=== PATIENT | male | born 1990 | race Caucasian/White ===

== ENCOUNTER 2023-01-07 15:13 | Outpatient (CLI) | payer OTHER | END 2023-01-07 15:14 | disposition home or self-care (01) | LOC: ULT 15:13 | PROVIDERS: ATTEND Urology | DX: Z31.69 Encounter for other general counseling and advice on procreation (principal); R35.0 Frequency of micturition; L72.0 Epidermal cyst | CPT/HCPCS: 76870; 93976 ==